=== PATIENT | female | born 1930 | race Caucasian/White ===

== ENCOUNTER 2018-10-31 12:29 | Emergency (ER) | payer OTHER ==
[~2018-10-31] VITALS: Ht 160 cm; Wt 104.3 kg
[2018-10-31] MEDS ORDERED: FORTAMET1000 MG (13:16)
[2018-10-31] MEDS ORDERED: ADULT ASPIRIN81 MG (13:16)
[2018-10-31] MEDS ORDERED: ZOCOR20 MG (13:17)
== END 2018-10-31 17:56 | disposition home or self-care (01) ==
LOC: ER 12:29
DX: S92.412A Displaced fracture of proximal phalanx of left great toe, initial encounter for closed fracture (principal); W18.39XA Other fall on same level, initial encounter; Y93.89 Activity, other specified; Y92.098 Other place in other non-institutional residence as the place of occurrence of the external cause; Y99.8 Other external cause status